=== PATIENT | female | born 1950 | race Caucasian/White ===

== ENCOUNTER 2019-05-19 05:44 | Inpatient (IN) | payer BC, OTHER ==
[~2019-05-19] VITALS: Ht 162.6 cm; Wt 97.4 kg
[2019-05-19] MEDS ORDERED: SODIUM CHLORIDE 0.9% 500 ML IVB ONE (07:55)
[2019-05-19] MEDS ORDERED: ONDANSETRON HCL 4 MG/2 ML VIAL IV ONE (08:00)
[2019-05-19] MEDS ORDERED: MORPHINE SULFATE 4 MG/ML SYR/VIAL IV ONE (08:00)
[2019-05-19 08:08] LABS: Urine Bacteria MANY /hpf (None Seen); Urine Blood TRACE /uL (Negative); Urine Hyaline Cast MOD /lpf (0 - 2); Urine Mucus FEW (None Seen); Urine WBC 224 /hpf (0 - 5)
[2019-05-19 08:14] LABS: Basophils # (auto) 0.1 uL; Basophils % (auto) 0.5 % (0.0-2.0); Eosinophils # (auto) 0.1 uL; Hematocrit 36.1 % (36.0-46.0); Hemoglobin 12.1 g/dL (12.2-16.2); Lymphocytes # (auto) 1.1 uL; Lymphocytes % (auto) 11.1 % (10.0-50.0); Mean Corpuscular Hemoglobin 28.3 pg (28.0-32.0); Mean Corpuscular Hgb Conc. 33.6 g/dL (32.0-36.0); Mean Corpuscular Volume 84.2 fL (80.0-100.0); Monocytes # (auto) 0.8 uL; Monocytes % (auto) 8.3 % (0.0-12.0); Neutrophils # (auto) 7.9 uL; Neutrophils % (auto) 79.1 % (37.0-80.0); Platelet Count (auto) 164 10^3/uL (140-450); Red Blood Cells 4.29 10^6/uL (4.0-5.20); Red Cell Distribution Width 17.2 % (11.8-14.3)
[2019-05-19 08:44] LABS: Albumin 3.7 g/dL (3.4-5.0); BUN/Creatinine Ratio 18.1; Calcium 9.2 mg/dL (8.5-10.1); Potassium 4.2 mmol/L (3.5-5.1)
[2019-05-19 08:47] LABS: Bilirubin, Total 0.5 mg/dL (0.2-1.0); Total Protein 7.7 g/dL (6.4-8.2)
[2019-05-19] MEDS ORDERED: cefTRIAXone 1GM/50ML D5W 50 ML IV ONE (09:00)
[2019-05-19] MEDS ORDERED: ONDANSETRON HCL 4 MG/2 ML VIAL IV PRN (09:45)
[2019-05-19] MEDS ORDERED: ACETAMINOPHEN 500 MG TAB PO PRN (09:45)
[2019-05-19] MEDS ORDERED: MORPHINE SULF INJ 2 MG/ML SYRINGE 1ML IV PRN ×2 (09:45)
[2019-05-19] MEDS ORDERED: NITROGLYCERIN 0.4 MG SL TAB SL PRN (09:45)
[2019-05-19] MEDS: SODIUM CHLORIDE 0.9% 1,000 ML IV SCH (10:06)
[2019-05-19] MEDS: FAMOTIDINE 20 MG TAB PO SCH (10:10)
[2019-05-19 13:00] VITALS: BP 160/75
--- NOTE | 2019-05-19 13:15 | NUR ---
PT ADMITTED TO FLOOR VIA GURNEY FROM E.R., NO DISTRESS NOTED. PT DENIES PAIN AT THIS TIME. PT ORIENTED TO CALL LIGHT AND UNIT. BED IN LOWEST LOCKED POSITION, SIDE RAILS UP X2. VITALS 160/78, 97.4, 02 96, HR 66, RR 16. WILL CONTINUE TO MONITOR.
[2019-05-19 14:06] VITALS: BP 160/75
--- NOTE | 2019-05-19 15:41 | NUR ---
CALLED AND PAGED DR POTTRE. PT REPORTS HX OF DIABETES AND HAS NO ACCUCHECKS SCHEDULED. PT IS ALSO AT MODERATE RISK FOR VTE AND HAS NO PROPHYLAXIS. PT BP ON ADMISSION WAS 160/75 AND NEEDS PRN BP MEDICATION.
[2019-05-19] MEDS ORDERED: LABETALOL HCL 5 MG/ML ML 20ML VIAL IV PRN (16:00)
[2019-05-19] MEDS ORDERED: DEXTROSE (50%) 50ML SYRG IV ONE (16:00)
[2019-05-19] MEDS ORDERED: ATOR10TA52 PO (16:05)
[2019-05-19] MEDS ORDERED: CAR3125T PO (16:05)
[2019-05-19] MEDS ORDERED: GLIP5TAB12 PO (16:05)
[2019-05-19] MEDS: HYDROcodone-ACET 5/325MG TAB PO PRN (16:12)
[2019-05-19] MEDS ORDERED: InsuLIN REG 1unit/0.01ml Soln (100units/ml) SC ONE (17:00)
[2019-05-19] MEDS ORDERED: ACCU-CHEK COMFORT CURVE STRIP VI ONE (17:00)
[2019-05-19 18:06] VITALS: BP 145/71
[2019-05-19] MEDS ORDERED: DEXTROSE (50%) 50ML SYRG IV PRN (19:30)
--- NOTE | 2019-05-19 19:45 | NUR ---
OPENING SHIFT NOTE RECEIVED REPORT FROM DAYSHIFT RN. PATIENT RESTING COMFORTABLY WITH EYES CLOSED. PATIENT SHOWING NO S/S OF DISTRESS OR SOB. NO PAIN NOTED OR REPORTED AT THIS TIME. PATIENT A/O X4, AMBULATORY WITH CANE. UPDATED PATIENT ON POC, VERBALIZED UNDERSTANDING. BED LOCKED IN LOW POSITION, CALL LIGHT WITHIN REACH. WILL CONTINUE TO MONITOR PATIENT Q1HR AND PRN.
[2019-05-19] MEDS: ATORVASTATIN 20 MG TAB PO SCH (21:23)
[2019-05-19] MEDS: ACCU-CHEK COMFORT CURVE STRIP VI SCH (21:27)
[2019-05-19] MEDS: InsuLIN REG 1unit/0.01ml Soln (100units/ml) SC SCH (21:28)
[2019-05-19 22:00] VITALS: BP 134/63
[2019-05-20] MEDS: SODIUM CHLORIDE 0.9% 1,000 ML IV SCH ×2 (00:23→12:22)
[2019-05-20 05:00] VITALS: BP 118/47
[2019-05-20 06:23] LABS: Basophils # (auto) 0 uL; Basophils % (auto) 0.4 % (0.0-2.0); Eosinophils # (auto) 0.1 uL; Eosinophils % (auto) 1.1 % (0.0-7.0); Hematocrit 33.7 % (36.0-46.0); Hemoglobin 11.2 g/dL (12.2-16.2); Lymphocytes # (auto) 1.1 uL; Lymphocytes % (auto) 14.5 % (10.0-50.0); Mean Corpuscular Hemoglobin 28.2 pg (28.0-32.0); Mean Corpuscular Hgb Conc. 33.4 g/dL (32.0-36.0); Mean Corpuscular Volume 84.5 fL (80.0-100.0); Monocytes # (auto) 0.7 uL; Monocytes % (auto) 9.2 % (0.0-12.0); Neutrophils # (auto) 5.8 uL; Neutrophils % (auto) 74.8 % (37.0-80.0); Platelet Count (auto) 138 10^3/uL (140-450); Red Blood Cells 3.99 10^6/uL (4.0-5.20); Red Cell Distribution Width 17.1 % (11.8-14.3); White Blood Cell 7.8 10^3/uL (4.4-10.8)
[2019-05-20] MEDS: InsuLIN REG 1unit/0.01ml Soln (100units/ml) SC SCH ×4 (06:27→22:17)
[2019-05-20] MEDS: ACCU-CHEK COMFORT CURVE STRIP VI SCH ×5 (06:33→22:18)
[2019-05-20 06:39] LABS: Cholesterol 131 mg/dL (< 200); HDL Cholesterol 43 mg/dL (40-59); LDL Cholesterol 71 mg/dL (< 100); Triglycerides 193 mg/dL (< 150)
[2019-05-20 06:45] LABS: BUN/Creatinine Ratio 15.6; Calcium 8.6 mg/dL (8.5-10.1)
--- NOTE | 2019-05-20 07:45 | NUR ---
OPENING SHIFT NOTE PATIENT LAYING IN BED WITH EYES CLOSED CHEST RISE AND FALL VISUALIZED, SHOWING NO S/S OF DISTRESS OR SOB AT THIS TIME. BED IN LOWEST LOCKED POSITION CALL LIGHT WITH IN REACH WILL CONTINUE TO MONITOR
[2019-05-20 08:00] VITALS: BP 101/50
[2019-05-20 09:00] VITALS: BP 118/50
[2019-05-20] MEDS: FAMOTIDINE 20 MG TAB PO SCH (11:26)
[2019-05-20] MEDS: cefTRIAXone 1GM/50ML D5W 50 ML IV SCH (11:26)
[2019-05-20 13:00] VITALS: BP 101/50
[2019-05-20 17:00] VITALS: BP 132/52
--- NOTE | 2019-05-20 18:51 | NUR ---
END OF SHIFT NOTE PATIENT AWAKE AND ALERT IN BED DENIES PAIN, SOB OR ANY DISTRESS. BED IN LOWEST LOCKED POSITION CALL LIGHT WITH IN REACH. ENDORSED CARE TO NOC RN
[2019-05-20 22:00] VITALS: BP 118/63
--- NOTE | 2019-05-20 22:00 | NUR ---
PT AWAKE ALERT X 4 AMBULATORY WITH GOOD STEADY GAIT. NO DISTRESS OBSERVED;WILL CONTINUE TO MONITOR.
[2019-05-20] MEDS: ATORVASTATIN 20 MG TAB PO SCH (22:17)
[2019-05-20] MEDS: HYDROcodone-ACET 5/325MG TAB PO PRN (22:18)
[2019-05-21] MEDS: SODIUM CHLORIDE 0.9% 1,000 ML IV SCH (01:42)
[2019-05-21 06:03] LABS: BUN/Creatinine Ratio 18.8; Calcium 8.6 mg/dL (8.5-10.1)
[2019-05-21 06:04] VITALS: BP 112/66
[2019-05-21] MEDS: InsuLIN REG 1unit/0.01ml Soln (100units/ml) SC SCH (06:37)
--- NOTE | 2019-05-21 07:40 | NUR ---
OPENING SHIFT NOTE PATIENT LAYING IN BED WITH EYES CLOSED CHEST RISE AND FALL VISUALIZED, SHOWING NO S/S OF DISTRESS OR SOB. BED IN LOWEST LOCKED POSITION CALL LIGHT WITHIN REACH WILL CONTINUE TO MONITOR
[2019-05-21 09:00] VITALS: BP 84/52
[2019-05-21] MEDS: cefTRIAXone 1GM/50ML D5W 50 ML IV SCH (09:16)
[2019-05-21] MEDS: FAMOTIDINE 20 MG TAB PO SCH (09:16)
[2019-05-21 12:28] VITALS: BP 84/52
--- NOTE | 2019-05-21 13:28 | NUR ---
DISCHARGE NOTE PATIENT ALERT AND ORIENTED X4 ALL DISCHARGE INSTRUCTIONS GIVEN ALL QUESTIONS AND QUESTIONS/CONCERNS ADDRESSED. IV REMOVED CATHETER INTACT PRESSURE DRESSING APPLIED PATIENT TOLERATED WELL. PATIENT ASSISTED TO PERSONAL VEHICLE USING A WHEELCHAIR. PATIENT DENIES ALL PAIN, SOB AND ANY DISTRESS
== END 2019-05-21 13:00 | disposition home or self-care (01) | DRG 871 ==
LOC: ER 05:44 → OVERFLOW 05:45 → CENTRAL 13:12
PROVIDERS: ADMIT Nurse Practitioner Acute Care; ATTEND Internal Medicine
DX: A41.51 Sepsis due to Escherichia coli [E. coli] (principal); N17.0 Acute kidney failure with tubular necrosis; N39.0 Urinary tract infection, site not specified; N18.3 Chronic kidney disease, stage 3 (moderate); I12.9 Hypertensive chronic kidney disease with stage 1 through stage 4 chronic kidney disease, or unspecified chronic kidney disease; D64.9 Anemia, unspecified; E66.9 Obesity, unspecified; E78.5 Hyperlipidemia, unspecified; I25.10 Atherosclerotic heart disease of native coronary artery without angina pectoris; N20.0 Calculus of kidney; E11.22 Type 2 diabetes mellitus with diabetic chronic kidney disease; B96.20 Unspecified Escherichia coli [E. coli] as the cause of diseases classified elsewhere; Z95.1 Presence of aortocoronary bypass graft; Z87.442 Personal history of urinary calculi; Z79.84 Long term (current) use of oral hypoglycemic drugs; Z79.899 Other long term (current) drug therapy; Z68.36 Body mass index [BMI] 36.0-36.9, adult
CPT/HCPCS: 36415; 74176; 80048; 80053; 80061; 81001; 82150; 82962; 83036; 83690; 85025; 87086; 87088; 87186; 93886; 94761; 96365; 96375; G0378; J0696; J1815; J2405